=== PATIENT | female | born 1960 | race American Indian/Alaskan Native ===

== ENCOUNTER 2018-01-13 03:42 | Emergency (ER) | payer OTHER ==
[2018-01-13 03:47] VITALS: BP 133/79
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
[2018-01-13] MEDS ORDERED: MOTRIN PO ONE (05:25)
[2018-01-13] MEDS ORDERED: FLEXERIL PO ONE (05:25)
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
== END 2018-01-13 05:40 | disposition home or self-care (01) ==
LOC: ED 03:42
DX: S16.1XXA Strain of muscle, fascia and tendon at neck level, initial encounter (principal); I10 Essential (primary) hypertension; E11.40 Type 2 diabetes mellitus with diabetic neuropathy, unspecified; Z98.51 Tubal ligation status; V89.2XXA Person injured in unspecified motor-vehicle accident, traffic, initial encounter; Y93.89 Activity, other specified; Y92.488 Other paved roadways as the place of occurrence of the external cause; Y99.8 Other external cause status
CPT/HCPCS: 72040; 99283

== ENCOUNTER 2018-06-27 13:14 | Inpatient (IN) | payer SELFPAY ==
--- NOTE | 2018-06-27 13:43 | Cat Scan Report ---
HEAD CT WITHOUT CONTRAST INDICATION: Neurologic deficits < 6 hours or symptoms present upon awakening. 98N. Right-sided tingling. COMPARISON: None similar. FINDINGS: Noncontrast head CT demonstrates symmetric, age-appropriate, slightly enlarged ventricles and mild periventricular hypodensities. Normal sulci. No definite acute infarct, hemorrhage, mass effect or midline shift. No abnormal extra axial fluid collections. Normal posterior fossa with preserved basilar cisterns. Normal eye globes. Approximately 0.7 cm inferior right maxillary sinus retention cyst. Clear remainder imaged paranasal sinuses and mastoid air cells. Bilateral external auditory canal debris may be directly visualized. Intact calvarium. Normal scalp. Few radiopaque dental material. CONCLUSION: No acute intracranial CT abnormality with few other findings, as above. MRI is more sensitive for detection of acute infarct and may be useful for further evaluation in the setting of a focal neurologic deficit. I phoned the above results to Dr. Elizondo in the ER, 1:40 PM, 06/27/2018. Thank you for the opportunity to participate in this patient's care.
[2018-06-27] MEDS ORDERED: BABY ASPIRIN PO ONE (13:46)
[2018-06-27 13:47] LABS: Basophils % (Auto) 0.8 % (0.0-1.8); Eosinophils # (Auto) 0.2 K/mm3 (0.0-0.4); Eosinophils % (Auto) 3.4 % (0.0-4.3); Hemoglobin 12.8 gm/dl (10.1-14.3); Lymphocytes # (Auto) 2.8 K/mm3 (1.2-5.4); Lymphocytes % (Auto) 43.9 % (13.4-35.0); Mean Corpuscular HGB Conc 32 % (30-34); Mean Corpuscular Volume 82 fl (79-97); Monocytes # (Auto) 0.8 K/mm3 (0.0-0.8); Monocytes % (Auto) 13.4 % (0.0-7.3); Platelet Count 223 K/mm3 (140-440); Red Blood Count 4.85 M/mm3 (3.65-5.03); Red Cell Distribution Width 13.8 % (13.2-15.2)
[2018-06-27] MEDS ORDERED: APRESOLINE IV ONE (13:47)
[2018-06-27 13:58] LABS: INR 0.9 (0.87-1.13)
[2018-06-27 13:59] LABS: Partial Thromboplastin Time 28.1 Sec. (24.2-36.6); Thrombin Time 16.6 Sec. (15.1-19.6)
[2018-06-27 14:03] LABS: BUN/Creatinine Ratio 13; Blood Urea Nitrogen 9 mg/dL (7-17); Calcium 9.2 mg/dL (8.4-10.2); Hemolysis Index 26
--- NOTE | 2018-06-27 14:08 | Emergency Department Report ---
ED Neuro Deficit HPI - General Chief Complaint: Neuro Symptoms/Deficit Stated Complaint: (R) SIDE PAIN Time Seen by Provider: 06/27/18 13:32 Source: patient Mode of arrival: Ambulatory Limitations: No Limitations - History of Present Illness Initial Comments: Mrs. Stephens is a very pleasant 57 yo female with hx of HTN and T2DM who presents with headache, right arm pain and right facial numbness. While lying in bed, she developed global throbbing headache, mild in severity. She then developed severe pain in right arm from shoulder to hand. Stiffness noticed in her right hand. Painful to make a fist. Mild upper back pain. Denies chest pain. Denies facial paralysis but her face felt odd. She felt as if her face was twitching. Of note, she has been without hypertensive medication for one week. 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 She was unable to afford her medication refill. She is behind on all her bills. She is followed at [facility]. -: Gradual Location: right face, right arm History of same: No Place: home Severity: moderate Quality: numb, tingling Improves With: time Worsens With: none On Anticoagulants: No Context: gradual onset - Related Data Home Medications: Previous Rx's Medication Instructions Recorded Last Taken Type Lisinopril [Zestril TAB] 20 mg PO QDAY #14 tablet 09/06/15 Unknown Rx traMADol [Ultram 50 MG tab] 50 mg PO Q6HR PRN #20 tablet 09/06/15 Unknown Rx Cyclobenzaprine [Flexeril 10 MG 10 mg PO TID #15 tablet 01/13/18 Unknown Rx TAB] Ibuprofen [Motrin 800 MG tab] 800 mg PO Q8HR #15 tablet 01/13/18 Unknown Rx Allergies/Adverse Reactions: Allergies Allergy/AdvReac Type Severity Reaction Status Date / Time No Known Allergies Allergy Verified 09/06/15 13:07 ED Review of Systems ROS: Stated complaint: (R) SIDE PAIN Other details as noted in HPI Comment: All other systems reviewed and negative Constitutional: denies: fever, malaise Respiratory: denies: cough Cardiovascular: denies: chest pain ED Past Medical Hx - Past Medical History Previous Medical History?: Yes Hx Hypertension: Yes Hx Diabetes: Yes (Diet controlled) Additional medical history: Neuropathy - Surgical History Past Surgical History?: Yes Additional Surgical History: tubal ligation, fibroid removal (embolization) - Family History Family history: CAD/TX, hypertension - Social History Smoking Status: Former Smoker Substance Use Type: None - Medications Home Medications: Home Medications Medication Instructions Recorded Confirmed Last Taken Type Lisinopril [Zestril TAB] 20 mg PO QDAY #14 tablet 09/06/15 Unknown Rx traMADol [Ultram 50 MG tab] 50 mg PO Q6HR PRN #20 tablet 09/06/15 Unknown Rx Cyclobenzaprine [Flexeril 10 MG 10 mg PO TID #15 tablet 01/13/18 Unknown Rx TAB] Ibuprofen [Motrin 800 MG tab] 800 mg PO Q8HR #15 tablet 01/13/18 Unknown Rx ED Neuro Physical Exam - General Limitations: No Limitations General appearance: alert, in no apparent distress Suspected Stroke: No - Head Head exam: Present: atraumatic, normocephalic - Eye Eye exam: Present: normal appearance - ENT ENT exam: Present: mucous membranes moist - Neck Neck exam: Present: normal inspection. Absent: tenderness, meningismus - Respiratory Respiratory exam: Present: normal lung sounds bilaterally. Absent: respiratory distress, wheezes, rales, rhonchi, stridor - Cardiovascular Cardiovascular Exam: Present: regular rate, normal rhythm, normal heart sounds. Absent: systolic murmur, diastolic murmur, rubs, gallop - GI/Abdominal GI/Abdominal exam: Present: soft, normal bowel sounds. Absent: distended, tenderness, guarding, rebound - Extremities Exam Extremities exam: Present: normal inspection - Back Exam Back exam: Present: normal inspection - Neurological Exam Neurological exam: Present: alert, oriented X3, CN II-XII intact, normal gait, reflexes normal. Absent: motor sensory deficit - NIHSS Assessment Interval: Baseline 1a. Level of Consciousness: alert/keenly responsive 1b. LOC Questions: answers both correctly 1c. LOC Commands: performs tasks correctly 2. Best Gaze: normal 3. Visual: no visual loss 4. Facial Palsy: normal symmetrical movement 5b. Motor Arm Right: no drift 5a. Motor Arm Left: no drift 6a. Motor Leg Left: no drift 6b. Motor Leg Right: no drift 7. Limb Ataxia: absent 8. Sensory: normal 9. Best Language: no aphasia 11. Extinction/Inattention: no abnormality - Psychiatric Psychiatric exam: Present: normal affect, normal mood - Skin Skin exam: Present: warm, dry, intact, normal color. Absent: rash ED Course Vital Signs 06/27/18 06/27/18 06/27/18 13:21 13:24 13:38 Temperature 98.6 F Pulse Rate 55 L Respiratory 16 13 Rate Blood Pressure Blood Pressure 168/97 [Left] O2 Sat by Pulse 96 Oximetry 06/27/18 06/27/18 06/27/18 13:40 13:45 14:01 Temperature Pulse Rate 56 L 59 L Respiratory 16 11 L 12 Rate Blood Pressure 197/102 174/82 Blood Pressure [Left] O2 Sat by Pulse 96 98 Oximetry - Lab Data Result diagrams: 06/27/18 13:37 06/27/18 13:37 Lab Results 06/27/18 06/27/18 06/27/18 Range/Units 13:24 13:37 13:37 WBC 6.3 (4.5-11.0) K/mm3 RBC 4.85 (3.65-5.03) M/mm3 Hgb 12.8 (10.1-14.3) gm/dl Hct 40.0 (30.3-42.9) % MCV 82 (79-97) fl MCH 27 L (28-32) pg MCHC 32 (30-34) % RDW 13.8 (13.2-15.2) % Plt Count 223 (140-440) K/mm3 Lymph % (Auto) 43.9 H (13.4-35.0) % Nuckolls % (Auto) 13.4 H (0.0-7.3) % Eos % (Auto) 3.4 (0.0-4.3) % Baso % (Auto) 0.8 (0.0-1.8) % Lymph # 2.8 (1.2-5.4) K/mm3 Nuckolls # 0.8 (0.0-0.8) K/mm3 Eos # 0.2 (0.0-0.4) K/mm3 Baso # 0.0 (0.0-0.1) K/mm3 Seg Neutrophils % 38.5 L (40.0-70.0) % Seg Neutrophils # 2.4 (1.8-7.7) K/mm3 PT 12.5 (12.2-14.9) Sec. INR 0.90 (0.87-1.13) APTT 28.1 (24.2-36.6) Sec. Thrombin Time 16.6 (15.1-19.6) Sec. Sodium (137-145) mmol/L Potassium (3.6-5.0) mmol/L Chloride (98-107) mmol/L Carbon Dioxide (22-30) mmol/L Anion Gap mmol/L BUN (7-17) mg/dL Creatinine (0.7-1.2) mg/dL Estimated GFR ml/min BUN/Creatinine Ratio % Glucose (65-100) mg/dL POC Glucose 94 (70-105) Calcium (8.4-10.2) mg/dL Troponin T (0.00-0.029) ng/mL 06/27/18 Range/Units 13:37 WBC (4.5-11.0) K/mm3 RBC (3.65-5.03) M/mm3 Hgb (10.1-14.3) gm/dl Hct (30.3-42.9) % MCV (79-97) fl MCH (28-32) pg MCHC (30-34) % RDW (13.2-15.2) % Plt Count (140-440) K/mm3 Lymph % (Auto) (13.4-35.0) % Nuckolls % (Auto) (0.0-7.3) % Eos % (Auto) (0.0-4.3) % Baso % (Auto) (0.0-1.8) % Lymph # (1.2-5.4) K/mm3 Nuckolls # (0.0-0.8) K/mm3 Eos # (0.0-0.4) K/mm3 Baso # (0.0-0.1) K/mm3 Seg Neutrophils % (40.0-70.0) % Seg Neutrophils # (1.8-7.7) K/mm3 PT (12.2-14.9) Sec. INR (0.87-1.13) APTT (24.2-36.6) Sec. Thrombin Time (15.1-19.6) Sec. Sodium 141 (137-145) mmol/L Potassium 3.5 L (3.6-5.0) mmol/L Chloride 101.4 (98-107) mmol/L Carbon Dioxide 29 (22-30) mmol/L Anion Gap 14 mmol/L BUN 9 (7-17) mg/dL Creatinine 0.7 (0.7-1.2) mg/dL Estimated GFR > 60 ml/min BUN/Creatinine Ratio 13 % Glucose 114 H (65-100) mg/dL POC Glucose (70-105) Calcium 9.2 (8.4-10.2) mg/dL Troponin T < 0.010 (0.00-0.029) ng/mL 06/27/18 14:10 EKG obtained 1346 Sinus bradycardia rate 57 normal axis normal intervals no ST elevation no nspecific T wave pattern - Radiology Data Radiology results: report reviewed CT head without acute process CT chest angiogram no dissection no pulmonary embolism - Medical Decision Making Mrs. Stephens presents with arm pain headache facial numbness. My clinical impression hypertensive urgency/emergency due to medication noncompliance. Hyperesthesia, pain in arm does not correlate with CVA. Isolated facial numbness without other neurological symptoms or signs of possible TIA. Patient was given aspirin in the ED. TPA not indicated due to complete resolution of symptoms and normal neurological exam NIHSS Admitted to the hospitalist service for further treatment and evaluation including blood pressure management. Critical Care Time: Yes Critical care time in (mins) excluding proc time.: 40 Critical care attestation.: If time is entered above; I have spent that time in minutes in the direct care of this critically ill patient, excluding procedure time. 40 minutes of critical care time excluding procedures were used in the care of the patient. Patient required multiple assessments and interventions. I reviewed the electronic medical record. I spoke with platform consultant involved in the care of the patient. ED Disposition Clinical Impression: Hypertensive emergency, Right arm pain, Tension headache, Facial numbness Disposition: OP ADMIT IP TO THIS HOSP Is pt being admited?: Yes Does the pt Need Aspirin: No Condition: Stable
[2018-06-27] MEDS ORDERED: ZOFRAN ONE (14:25)
[2018-06-27] MEDS ORDERED: ZOFRAN IV ONE (14:30)
--- NOTE | 2018-06-27 15:23 | Cat Scan Report ---
CTA CHEST INDICATION: Hypertensive emergency, arm pain. COMPARISON: None similar. FINDINGS: Chest CTA performed following intravenous administration of 100 cc of Omnipaque 350. Rotational MIP's also obtained. Mild cardiomegaly. No effusions. No aortic aneurysm, dissection or suspicious pulmonary arterial filling defects. No size significant adenopathy. Normal airway. Unremarkable thyroid. Clear lungs. Nonspecific distal esophageal wall mild prominence/thickening, not excluded for gastroesophageal reflux and/or hiatal hernia, amongst others. Images through included upper abdomen reveal no acute abnormality. Multilevel spinal degenerative spurring, greatest lower cervical and mid to lower thoracic. CONCLUSION: No CT evidence of pulmonary embolism with few other incidental findings, as above. Thank you for the opportunity to participate in this patient's care.
--- NOTE | 2018-06-27 15:38 | XRay Report ---
PORTABLE CHEST: Dyspnea An AP portable view of the chest demonstrates a normal cardiac contour considering the limits of this technique. The lungs are clear with no evidence of infiltrate, fluid or failure. IMPRESSION: Normal portable chest.
--- NOTE | 2018-06-27 21:41 | History and Physical Report ---
History of Present Illness Date of examination: 06/27/18 Date of admission: 06/27/18 15:53 Chief complaint: Right facial numbness and right arm numbness since morning. History of present illness: 57-year-old -[place] female with history of hypertension and type 2 diabetes comes in for right facial numbness and right arm numbness. Lasted for about 4-6 hours. Also has a throbbing headache. All of these are resolved in the emergency room. Patient had a high blood pressure around 192/106. 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 Past Medical History Previous Medical History?: Yes Hx Hypertension: Yes Hx Diabetes: Yes (Diet controlled) Additional medical history: Neuropathy Surgical History Past Surgical History?: Yes Additional Surgical History: tubal ligation, fibroid removal (embolization) Family History Family history: CAD/MD, hypertension Social History Smoking Status: Former Smoker Substance Use Type: None Medications Home Medications: Home Medications Medication Instructions Recorded Confirmed Last Taken Type Lisinopril [Zestril TAB] 20 mg PO QDAY #14 tablet 09/06/15 Unknown Rx traMADol [Ultram 50 MG tab] 50 mg PO Q6HR PRN #20 tablet 09/06/15 Unknown Rx Cyclobenzaprine [Flexeril 10 MG 10 mg PO TID #15 tablet 01/13/18 Unknown Rx TAB] Ibuprofen [Motrin 800 MG tab] 800 mg PO Q8HR #15 tablet 01/13/18 Unknown Rx Review of Systems ROS: Stated complaint: (R) SIDE PAIN Other details as noted in HPI Comment: All other systems reviewed and negative Constitutional: denies: fever, malaise Respiratory: denies: cough Cardiovascular: denies: chest pain Right-sided facial numbness of the face and right upper extremity which has r esolved Medications and Allergies Allergies Allergy/AdvReac Type Severity Reaction Status Date / Time No Known Allergies Allergy Verified 09/06/15 13:07 Home Medications Medication Instructions Recorded Confirmed Last Taken Type Lisinopril [Zestril TAB] 20 mg PO QDAY #14 tablet 09/06/15 Unknown Rx traMADol [Ultram 50 MG tab] 50 mg PO Q6HR PRN #20 tablet 09/06/15 Unknown Rx Cyclobenzaprine [Flexeril 10 MG 10 mg PO TID #15 tablet 01/13/18 Unknown Rx TAB] Ibuprofen [Motrin 800 MG tab] 800 mg PO Q8HR #15 tablet 01/13/18 Unknown Rx Exam - Constitutional Vitals: Temp Pulse Resp BP Pulse Ox 98.4 F 54 L 18 137/77 100 06/27/18 19:56 06/27/18 20:02 06/27/18 20:02 06/27/18 19:56 06/27/18 20:21 General appearance: Present: no acute distress, well-nourished - EENT Eyes: Present: PERRL ENT: hearing intact, clear oral mucosa - Neck Neck: Present: supple, normal ROM - Respiratory Respiratory effort: normal Respiratory: bilateral: CTA - Cardiovascular Heart rate: 51 Rhythm: regular Heart Sounds: Present: S1 & S2. Absent: rub, click - Extremities Extremities: no ischemia, pulses intact, pulses symmetrical, No edema Peripheral Pulses: within normal limits - Abdominal General gastrointestinal: Present: soft, non-tender, non-distended, normal bowel sounds Female genitourinary: Present: normal - Rectal Rectal Exam: deferred - Integumentary Integumentary: Present: clear, warm, dry - Musculoskeletal Musculoskeletal: gait normal, strength equal bilaterally - Psychiatric Psychiatric: appropriate mood/affect, intact judgment & insight - Neurologic Neurologic: CNII-XII intact, moves all extremities - Allied Health Allied health notes reviewed: nursing, case management Results - Labs CBC & Chem 7: 06/27/18 13:37 06/27/18 13:37 Labs: Laboratory Last Values WBC 6.3 K/mm3 (4.5-11.0) 06/27/18 13:37 RBC 4.85 M/mm3 (3.65-5.03) 06/27/18 13:37 Hgb 12.8 gm/dl (10.1-14.3) 06/27/18 13:37 Hct 40.0 % (30.3-42.9) 06/27/18 13:37 MCV 82 fl (79-97) 06/27/18 13:37 MCH 27 pg (28-32) L 06/27/18 13:37 MCHC 32 % (30-34) 06/27/18 13:37 RDW 13.8 % (13.2-15.2) 06/27/18 13:37 Plt Count 223 K/mm3 (140-440) 06/27/18 13:37 Lymph % (Auto) 43.9 % (13.4-35.0) H 06/27/18 13:37 Sharp % (Auto) 13.4 % (0.0-7.3) H 06/27/18 13:37 Eos % (Auto) 3.4 % (0.0-4.3) 06/27/18 13:37 Baso % (Auto) 0.8 % (0.0-1.8) 06/27/18 13:37 Lymph # 2.8 K/mm3 (1.2-5.4) 06/27/18 13:37 Sharp # 0.8 K/mm3 (0.0-0.8) 06/27/18 13:37 Eos # 0.2 K/mm3 (0.0-0.4) 06/27/18 13:37 Baso # 0.0 K/mm3 (0.0-0.1) 06/27/18 13:37 Seg Neutrophils % 38.5 % (40.0-70.0) L 06/27/18 13:37 Seg Neutrophils # 2.4 K/mm3 (1.8-7.7) 06/27/18 13:37 PT 12.5 Sec. (12.2-14.9) 06/27/18 13:37 INR 0.90 (0.87-1.13) 06/27/18 13:37 APTT 28.1 Sec. (24.2-36.6) 06/27/18 13:37 Thrombin Time 16.6 Sec. (15.1-19.6) 06/27/18 13:37 Sodium 141 mmol/L (137-145) 06/27/18 13:37 Potassium 3.5 mmol/L (3.6-5.0) L 06/27/18 13:37 Chloride 101.4 mmol/L (98-107) 06/27/18 13:37 Carbon Dioxide 29 mmol/L (22-30) 06/27/18 13:37 Anion Gap 14 mmol/L 06/27/18 13:37 BUN 9 mg/dL (7-17) 06/27/18 13:37 Creatinine 0.7 mg/dL (0.7-1.2) 06/27/18 13:37 Estimated GFR > 60 ml/min 06/27/18 13:37 BUN/Creatinine Ratio 13 % 06/27/18 13:37 Glucose 114 mg/dL (65-100) H 06/27/18 13:37 POC Glucose 94 (70-105) 06/27/18 13:24 Calcium 9.2 mg/dL (8.4-10.2) 06/27/18 13:37 Troponin T < 0.010 ng/mL (0.00-0.029) 06/27/18 13:37 Short CBC 06/27/18 Range/Units 13:37 WBC 6.3 (4.5-11.0) K/mm3 Hgb 12.8 (10.1-14.3) gm/dl Hct 40.0 (30.3-42.9) % Plt Count 223 (140-440) K/mm3 BMP 06/27/18 13:37 Sodium 141 Potassium 3.5 L Chloride 101.4 Carbon Dioxide 29 BUN 9 Creatinine 0.7 Glucose 114 H Calcium 9.2 Cardiac Enzymes 06/27/18 Range/Units 13:37 Troponin T < 0.010 (0.00-0.029) ng/mL - Imaging and Cardiology EKG: report reviewed (sinus bradycardia heart rate of 51/m left ventricle hypertrophy.) Imaging and Cardiology: CTA chest CONCLUSION: No CT evidence of pulmonary embolism with few other incidental findings, as above. Chest x-ray IMPRESSION: Normal portable chest. CT head CONCLUSION: No acute intracranial CT abnormality with few other findings, as a yulissa. MRI is more sensitive for detection of acute infarct and may be useful for further evaluation in the setting of a focal neurologic deficit. Assessment and Plan Advance Directives: Yes (full code) VTE prophylaxis?: Chemical Plan of care discussed with patient/family: Yes - Patient Problems (1) Hypertensive emergency Current Visit: Yes Status: Acute Plan to address problem: Lisinopril and Coreg added IV hydralazine when necessary every 3 hours Noncompliance Patient counseled (2) TIA (transient ischemic attack) Current Visit: Yes Status: Acute Plan to address problem: Patient had right facial numbness which is resolved Will get MRI and MRA. Also carotid duplex scan (3) T2DM (type 2 diabetes mellitus) Current Visit: Yes Status: Chronic Qualifiers: Diabetes mellitus nursing home insulin use: without remote computer terminal operator use Plan to address problem: Added metformin 500 twice a day Check A1c Accu-Cheks before meals and at bedtime Coverage with moderate dose insulin sliding scale protocol (4) Hypokalemia Current Visit: Yes Status: Acute Plan to address problem: Supplemented (5) DVT prophylaxis Current Visit: Yes Status: Acute Plan to address problem: Lovenox 40 mg subcutaneous daily and GI prophylaxis
[2018-06-27] MEDS ORDERED: ZOFRAN IV PRN (21:53)
[2018-06-27] MEDS ORDERED: PERCOCET 5/325 PO PRN (21:53)
[2018-06-27] MEDS ORDERED: DILAUDID IV PRN (21:53)
[2018-06-27] MEDS ORDERED: SODIUM CHLORIDE FLUSH SYRINGE 10 ML IV PRN (21:53)
[2018-06-27] MEDS ORDERED: APRESOLINE IV PRN (21:55)
[2018-06-27] MEDS ORDERED: K-DUR PO ONE (21:57)
[2018-06-27] MEDS: PEPCID PO SCH (22:53)
[2018-06-27] MEDS: COREG PO SCH (22:55)
[2018-06-27] MEDS: ZESTRIL PO SCH (22:58)
[2018-06-27] MEDS: HumaLOG SUB-Q SCH (22:59)
[2018-06-27] MEDS: SODIUM CHLORIDE FLUSH SYRINGE 10 ML IV SCH (23:00)
[2018-06-28 06:29] LABS: Basophils % (Auto) 0.4 % (0.0-1.8); Eosinophils # (Auto) 0.2 K/mm3 (0.0-0.4); Eosinophils % (Auto) 3.2 % (0.0-4.3); Hematocrit 39.3 % (30.3-42.9); Hemoglobin 12.6 gm/dl (10.1-14.3); Lymphocytes # (Auto) 2.8 K/mm3 (1.2-5.4); Lymphocytes % (Auto) 47.4 % (13.4-35.0); Mean Corpuscular HGB Conc 32 % (30-34); Mean Corpuscular Volume 84 fl (79-97); Monocytes # (Auto) 0.8 K/mm3 (0.0-0.8); Monocytes % (Auto) 13.3 % (0.0-7.3); Platelet Count 226 K/mm3 (140-440); Red Blood Count 4.68 M/mm3 (3.65-5.03); Red Cell Distribution Width 14.1 % (13.2-15.2)
[2018-06-28 06:56] LABS: Alanine Aminotransferase 16 units/L (7-56); Albumin 4.1 g/dL (3.9-5); BUN/Creatinine Ratio 11; Blood Urea Nitrogen 10 mg/dL (7-17); Hemolysis Index 5
[2018-06-28] MEDS: HumaLOG SUB-Q SCH ×4 (07:58→21:37)
[2018-06-28] MEDS: GLUCOPHAGE PO SCH ×2 (08:04→16:19)
[2018-06-28] MEDS: HALFPRIN EC PO SCH (11:45)
[2018-06-28] MEDS: SODIUM CHLORIDE FLUSH SYRINGE 10 ML IV SCH ×2 (11:45→21:40)
[2018-06-28] MEDS: COREG PO SCH ×2 (11:45→21:37)
[2018-06-28] MEDS: ZESTRIL PO SCH (11:45)
[2018-06-28] MEDS: PEPCID PO SCH ×2 (11:45→21:39)
--- NOTE | 2018-06-28 12:29 | Progress Note ---
Assessment and Plan 57-year-old -[place] female with history of hypertension and type 2 diabetes comes in for right facial numbness and right arm numbness. Lasted for about 4-6 hours. Also has a throbbing headache. All of these are resolved in the emergency room. Patient had a high blood pressure around 192/106. 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 (1) Hypertensive emergency Current Visit: Yes Status: Acute Plan to address problem: Continue with Lisinopril and Coreg IV hydralazine when necessary every 3 hours Noncompliance Patient counseled (2) TIA (transient ischemic attack) Current Visit: Yes Status: Acute Plan to address problem: Patient had right facial numbness which is resolved Follow-up with MRI and MRA of the head as well as carotid Doppler. Echo showed ejection fraction of 60-65%. No intramural thrombus. (3) T2DM (type 2 diabetes mellitus) Current Visit: Yes Status: Chronic Qualifiers: Diabetes mellitus preventive medicine specialist insulin use: without retirement use Plan to address problem: Added metformin 500 twice a day A1c 7.1% Accu-Cheks before meals and at bedtime Sliding scale insulin (4) Hypokalemia Current Visit: Yes Status: Acute Plan to address problem: Supplemented (5) DVT prophylaxis Current Visit: Yes Status: Acute Plan to address problem: Lovenox 40 mg subcutaneous daily and GI prophylaxis Subjective Date of service: 06/28/18 Principal diagnosis: no more right fascia numbness. Denies any headache. Interval history: Patient seen and examined. Denies any chest pain or shortness of breath. No slow speech. Objective - Exam Narrative Exam: Constitutional: Well-nourished well-developed. In no distress Head: Normocephalic atraumatic Eyes: Pupils are equal round and reactive to light Nose: No enlarged turbinates, no septal deviation. Mouth: Moist mucous membranes. Neck: Supple no thyromegaly. No bruit. No JVD Heart: Regular rate and rhythm, S1-S2 normal. No rubs murmurs or gallop Lungs: Clear to auscultation bilaterally. no rales or rhonchi Abdomen: Soft, nontender. Bowel sound are present. Extremities: No edema, no cyanosis, no clubbing. Neuro: Alert oriented Oriented x3. No focal sensory or motor deficit. Skin: No rashes or hyperpigmented spots Musculoskeletal system: No joint pain or swelling Hematological: No petechia or subcutanous hemorrhages. Immunological: No multiple septic spots on the skin Lymphatic: No generalized lymphadenopathy Psychiatry: Euthymic. Calm. - Constitutional Vitals: Vital Signs - 12hr 06/28/18 06/28/18 06/28/18 05:21 07:48 11:45 Temperature 97.5 F L 97.7 F Pulse Rate 49 L 49 L 48 L Respiratory 18 16 Rate Blood Pressure 116/61 124/73 O2 Sat by Pulse 98 99 Oximetry - Labs CBC & Chem 7: 06/28/18 05:49 06/28/18 05:49 Labs: Abnormal lab results 06/27/18 06/27/18 06/27/18 Range/Units 13:37 13:37 22:56 MCH 27 L (28-32) pg Lymph % (Auto) 43.9 H (13.4-35.0) % Kendall % (Auto) 13.4 H (0.0-7.3) % Seg Neutrophils % 38.5 L (40.0-70.0) % Potassium 3.5 L (3.6-5.0) mmol/L Carbon Dioxide (22-30) mmol/L Glucose 114 H (65-100) mg/dL Hemoglobin A1c 7.1 H (4-6) % 06/28/18 06/28/18 Range/Units 05:49 05:49 MCH 27 L (28-32) pg Lymph % (Auto) 47.4 H (13.4-35.0) % Kendall % (Auto) 13.3 H (0.0-7.3) % Seg Neutrophils % 35.7 L (40.0-70.0) % Potassium 3.5 L (3.6-5.0) mmol/L Carbon Dioxide 31 H (22-30) mmol/L Glucose (65-100) mg/dL Hemoglobin A1c (4-6) %
--- NOTE | 2018-06-28 17:06 | Vascular Lab Report ---
FINAL REPORT EXAM: VL CAROTID DUPLEX BILAT HISTORY: TIA COMPARISON: None available. FINDINGS: On the right, peak systolic velocity within the common carotid artery 83 centimeters/second, internal carotid artery 77, external carotid artery 45. On the left, peak systolic velocity within the common carotid artery 74 centimeters/second, internal carotid artery 83, external carotid artery 43. Intracranial flow within the vertebral arteries. No hemodynamically significant plaque formation param g the extracranial carotid vasculature. No calcified plaque demonstrated. IMPRESSION: No hemodynamically significant plaque formation by NASCET criteria. No calcified plaque.
[2018-06-29] MEDS: HumaLOG SUB-Q SCH ×4 (07:44→22:10)
[2018-06-29] MEDS: COREG PO SCH ×2 (10:48→22:12)
[2018-06-29] MEDS: ZESTRIL PO SCH (10:49)
[2018-06-29] MEDS: GLUCOPHAGE PO SCH ×2 (10:50→17:01)
[2018-06-29] MEDS: SODIUM CHLORIDE FLUSH SYRINGE 10 ML IV SCH ×2 (10:52→22:11)
[2018-06-29] MEDS: HALFPRIN EC PO SCH (10:52)
[2018-06-29] MEDS: PEPCID PO SCH ×2 (10:52→22:09)
[2018-06-29] MEDS: TYLENOL PO PRN (11:20)
--- NOTE | 2018-06-29 20:01 | Progress Note ---
Assessment and Plan 57-year-old -Turkish female with history of hypertension and type 2 diabetes comes in for right facial numbness and right arm numbness. Lasted for about 4-6 hours. Also has a throbbing headache. All of these are resolved in the emergency room. Patient had a high blood pressure around 192/106. 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 (1) Hypertensive emergency Current Visit: Yes Status: Acute Plan to address problem: Continue with Lisinopril and Coreg IV hydralazine when necessary every 3 hours Noncompliance Patient counseled (2) TIA (transient ischemic attack) Current Visit: Yes Status: Acute Plan to address problem: Patient had right facial numbness which is resolved Follow-up with MRI and MRA of the head as well as carotid Doppler. Echo showed ejection fraction of 60-65%. No intramural thrombus. (3) T2DM (type 2 diabetes mellitus) Current Visit: Yes Status: Chronic Qualifiers: Diabetes mellitus manager intermediate insulin use: without manager intermediate use Plan to address problem: Added metformin 500 twice a day A1c 7.1% Accu-Cheks before meals and at bedtime Sliding scale insulin (4) Hypokalemia Current Visit: Yes Status: Acute Plan to address problem: Supplemented (5) DVT prophylaxis Current Visit: Yes Status: Acute Plan to address problem: Lovenox 40 mg subcutaneous daily and GI prophylaxis Subjective Date of service: 06/29/18 Principal diagnosis: no more right fascia numbness. Denies any headache. Interval history: Patient seen and examined. Denies any chest pain or shortness of breath. No slow speech. Objective - Exam Narrative Exam: Constitutional: Well-nourished well-developed. In no distress Head: Normocephalic atraumatic Eyes: Pupils are equal round and reactive to light Nose: No enlarged turbinates, no septal deviation. Mouth: Moist mucous membranes. Neck: Supple no thyromegaly. No bruit. No JVD Heart: Regular rate and rhythm, S1-S2 normal. No rubs murmurs or gallop Lungs: Clear to auscultation bilaterally. no rales or rhonchi Abdomen: Soft, nontender. Bowel sound are present. Extremities: No edema, no cyanosis, no clubbing. Neuro: Alert oriented Oriented x3. No focal sensory or motor deficit. Skin: No rashes or hyperpigmented spots Musculoskeletal system: No joint pain or swelling Hematological: No petechia or subcutanous hemorrhages. Immunological: No multiple septic spots on the skin Lymphatic: No generalized lymphadenopathy Psychiatry: Euthymic. Calm. - Constitutional Vitals: Vital Signs - 12hr 06/29/18 06/29/18 06/29/18 10:00 10:48 10:49 Temperature 98.6 F Pulse Rate 55 L 55 L 55 L Respiratory 20 Rate Blood Pressure [Left] Blood Pressure 145/76 [Right] O2 Sat by Pulse 98 Oximetry 06/29/18 06/29/18 13:33 17:15 Temperature 98.6 F Pulse Rate 52 L 51 L Respiratory 20 20 Rate Blood Pressure 137/75 174/76 [Left] Blood Pressure [Right] O2 Sat by Pulse 96 94 Oximetry - Labs CBC & Chem 7: 06/28/18 05:49 06/28/18 05:49
[2018-06-30] MEDS: TYLENOL PO PRN (01:58)
[2018-06-30 06:09] LABS: Basophils % (Auto) 0.5 % (0.0-1.8); Eosinophils # (Auto) 0.3 K/mm3 (0.0-0.4); Eosinophils % (Auto) 3.6 % (0.0-4.3); Hematocrit 37.6 % (30.3-42.9); Hemoglobin 12.2 gm/dl (10.1-14.3); Lymphocytes # (Auto) 3.5 K/mm3 (1.2-5.4); Mean Corpuscular HGB Conc 33 % (30-34); Mean Corpuscular Volume 82 fl (79-97); Monocytes # (Auto) 0.8 K/mm3 (0.0-0.8); Platelet Count 232 K/mm3 (140-440); Red Blood Count 4.57 M/mm3 (3.65-5.03); Red Cell Distribution Width 13.5 % (13.2-15.2)
[2018-06-30 06:32] LABS: Alanine Aminotransferase 17 units/L (7-56); Albumin 3.9 g/dL (3.9-5); BUN/Creatinine Ratio 14; Blood Urea Nitrogen 10 mg/dL (7-17); Hemolysis Index 18
[2018-06-30] MEDS: HumaLOG SUB-Q SCH ×3 (07:30→17:53)
[2018-06-30] MEDS: PEPCID PO SCH (09:50)
[2018-06-30] MEDS: HALFPRIN EC PO SCH (09:50)
[2018-06-30] MEDS: SODIUM CHLORIDE FLUSH SYRINGE 10 ML IV SCH (09:51)
[2018-06-30] MEDS: GLUCOPHAGE PO SCH ×2 (09:51→17:53)
[2018-06-30] MEDS: ZESTRIL PO SCH (09:51)
[2018-06-30] MEDS: COREG PO SCH ×2 (09:52→10:03)
--- NOTE | 2018-06-30 12:07 | Discharge Summary ---
Providers - Providers Date of Admission: 06/27/18 15:53 Attending physician: FRANKLYN BAINS MD Primary care physician: NATHAN MALCOLM Hospitalization Reason for admission: Hypertensive urgency, TIA Condition: Stable Pertinent studies: CT, MRI head Carotid doppler Hospital course: 57-year-old -[place] female with history of hypertension and type 2 diabetes comes in for right facial numbness and right arm numbness. Lasted for about 4-6 hours. Also has a throbbing headache. All of these are resolved in the emergency room. Patient had a high blood pressure around 192/106. 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 Patient was admitted to the floor and Blood pressure was controlled. Patient was worked up for CVA and was unremarkable. TIA symptoms were resolved and discharged home in a stable conditions. Her BP medications were refilled and patient was given a script for plavix and statin. Disposition: TO HOME OR SELFCARE Time spent for discharge: 32 minutes - Discharge Diagnoses (1) Facial numbness Status: Acute (2) Hypertensive emergency Status: Acute (3) TIA (transient ischemic attack) Status: Acute Core Measure Documentation - Palliative Care Palliative Care/ Comfort Measures: Not Applicable - Core Measures Any of the following diagnoses?: none Exam - Constitutional Vitals: Temp Pulse Resp BP Pulse Ox 98.5 F 53 L 18 140/73 96 06/30/18 11:45 06/30/18 11:44 06/30/18 11:44 06/30/18 11:44 06/30/18 11:44 General appearance: Present: no acute distress, obese - EENT Eyes: Present: PERRL, EOM intact. Absent: conjunctival injection ENT: hearing intact, clear oral mucosa, dentition normal - Neck Neck: Present: supple, normal ROM - Respiratory Respiratory effort: normal - Cardiovascular Rhythm: regular Heart Sounds: Present: S1 & S2. Absent: gallop - Extremities Extremities: no ischemia, No edema, Full ROM Peripheral Pulses: within normal limits - Abdominal General gastrointestinal: Present: soft, non-tender, non-distended Female genitourinary: Present: deferred - Rectal Rectal Exam: deferred - Integumentary Integumentary: Present: clear, warm, dry - Musculoskeletal Musculoskeletal: strength equal bilaterally - Psychiatric Psychiatric: appropriate mood/affect - Neurologic Neurologic: CNII-XII intact Plan Activity: no restrictions Weight Bearing Status: Full Weight Bearing Diet: low cholesterol, low salt Follow up with: NATHAN MALCOLM MD [Primary Care Provider] - 3-5 Days Prescriptions: AtorvaSTATin [Lipitor] 40 mg PO QHS #30 tab Aspirin EC [Aspirin Enteric Coated TAB] 81 mg PO QDAY #30 tablet Carvedilol [Coreg] 12.5 mg PO BID #30 tablet Cyclobenzaprine [Flexeril 10 MG TAB] 10 mg PO TID #15 tablet Lisinopril [Zestril TAB] 20 mg PO QDAY #30 tablet metFORMIN [Glucophage] 500 mg PO BIDDIAB #60 tablet traMADol [Ultram 50 MG tab] 50 mg PO Q6HR PRN #20 tablet PRN Reason: Pain
--- NOTE | 2018-06-30 15:46 | Magnetic Resonance Report ---
MRI BRAIN WITHOUT CONTRAST: 06/30/18 CLINICAL: TIA TECHNIQUE: Axial diffusion, T1, T2, gradient echo T2*, coronal and axial FLAIR and sagittal T1 sequences on a 1.5 Adri magnet. FINDINGS: There is artifactual noise in the left hemisphere on most of the sequences but it is not render this study nondiagnostic. The ventricles and sulci are normal for age. No restricted diffusion and no abnormal signal.. No mass or mass effect. No hemorrhage, edema or extra-axial collection. Normal pituitary and optic chiasm. The brainstem and cerebellum are normal. Intact vascular flow voids. Normal sinuses. The orbits, and soft tissues are normal. Normal calvarium and skull base. IMPRESSION: Negative study with no evidence of acute/subacute infarct or hemorrhage.
--- NOTE | 2018-06-30 15:48 | Magnetic Resonance Report ---
MRA HEAD WITHOUT CONTRAST: 06/30/18 CLINICAL: TIA. TECHNIQUE: Axial 3-D [id number] MR angiography of the [place] with review of axial source images. FINDINGS: There is an artifactual decrease in signal and increased noise in the left hemisphere. This is also identified on the MRI brain. The [place] is intact with no aneurysm, high-grade stenosis or occlusion. Relatively symmetric blood flow in the anterior, middle and posterior cerebral arteries. Normal basilar and vertebral arteries. IMPRESSION: Normal study.
[2018-06-30 17:41] VITALS: BP 133/94
== END 2018-06-30 19:00 | disposition home or self-care (01) | DRG 69 ==
LOC: ED 13:14 → 4A 15:53
PROVIDERS: ADMIT Internal Medicine; ATTEND Internal Medicine
DX: G45.9 Transient cerebral ischemic attack, unspecified (principal); I16.1 Hypertensive emergency; E87.6 Hypokalemia; E11.40 Type 2 diabetes mellitus with diabetic neuropathy, unspecified; Z79.84 Long term (current) use of oral hypoglycemic drugs; Z98.51 Tubal ligation status; Z82.49 Family history of ischemic heart disease and other diseases of the circulatory system; Z87.891 Personal history of nicotine dependence; Z91.14 Patient's other noncompliance with medication regimen
CPT/HCPCS: 36415; 70450; 70544; 70551; 71045; 71275; 80048; 80053; 82962; 83036; 84484; 85025; 85610; 85670; 85730; 87116; 93005; 93010; 93306; 93880; 94760; 96374; G0378; J0360; J1170; J2405; Q9967